=== PATIENT | female | born 1990 ===

== ENCOUNTER 2020-06-12 16:19 | Outpatient (REF) | payer MEDICAID, SELFPAY | END 2020-06-12 16:20 | disposition home or self-care (01) | LOC: HO.LAB 16:19 | PROVIDERS: Visit Provider Internal Medicine | DX: Z20.828 Contact with and (suspected) exposure to other viral communicable diseases (principal) | CPT/HCPCS: 36415; C9803; U0003 ==

== ENCOUNTER 2020-11-14 20:08 | Emergency (ER) | payer MEDICAID, SELFPAY ==
--- NOTE | 2020-11-14 20:33 | PC.NURSE ---
CALLED FOR TRIAGE NO RESPONSE
== END 2020-11-14 20:40 | disposition left against medical advice (07) ==
PROVIDERS: Emergency Provider Emergency Medicine
DX: M79.603 Pain in arm, unspecified (principal); R20.0 Anesthesia of skin

== ENCOUNTER 2020-11-19 00:07 | Emergency (ER) | payer MEDICAID, SELFPAY ==
--- NOTE | ~2020-11-19 | XR_ITS ---
EXAMINATION: XR WRIST HAND, LEFT CLINICAL INFORMATION: Hand wrist pain COMPARISON: None TECHNIQUE: 4 views of the left hand/wrist. FINDINGS: Osseous alignment throughout the wrist and hand is anatomic. No acute fracture is seen. There is mild chronic appearing deformity at the base of the second distal phalanx. No significant focal soft tissue abnormality identified. XR/XR hand wrist LT IMPRESSION: No acute findings identified.
[2020-11-19 01:51] VITALS: BP 118/85; PULSE 83; RESP 18; TEMP 36.1; BMI 34.9
--- NOTE | 2020-11-19 02:29 | ED.EXTPRO ---
HPI - Extremity Problem General Chief complaint: Extremity Injury, Upper Stated complaint: Wrist pain Time Seen by Provider: 11/19/20 02:29 History of Present Illness HPI Narrative: 30-year-old female presents today with her pain to the left wrist. She has a history of repetitive use of the wrist. She works as a cashier and waiter/waitress. No fever no chills. No trauma. Patient from home. Pain is worse at the thumb side. Patient denies any pain to the index long and ring finger. No numbness there. No nausea no vomiting no systemic complaints. No chest pain or shortness of breath. Patient from home. No pain at the elbow full range of motion per patient. Patient attempted Motrin as the pain is been ongoing for 3 weeks. Related Data Previous Rx's Medication Instructions Recorded ibuprofen 400 mg PO Q6H PRN #20 tab 11/19/20 Allergies Allergy/AdvReac Type Severity Reaction Status Date / Time No Known Allergies Allergy Unverified 02/24/20 19:36 [No Known Allergies*] Review of Systems Review of Systems: Constitutional: No Weight loss, No Fever, No Chills, No Night Sweats, No Fatigue, No Malaise ENT/Mouth: No Hearing loss, No Ear Pain, No Nasal Congestion, No Sinus Pain, No Hoarseness, No sore throat, No Rhinorrhea, No Swallowing Difficulty Eyes: No Eye Pain, No Swelling, No Redness, No Foreign Body, No Discharge, No Vision Changes Cardiovascular: No Chest Pain, No SOB, No Dyspnea on Exertion, No Orthopnea, No Edema, No Palpitations Respiratory: No Cough, No Sputum, No Wheezing, No Smoke Exposure, No Dyspnea Gastrointestinal: No Nausea, No Vomiting, No Diarrhea, No Constipation, No abdominal Pain, No Hematochezia, No Melena Genitourinary: no irregular bleeding, No Dysuria, No Urinary Frequency, No Hematuria, No Urinary Incontinence, No Urgency, No Flank Pain, No Urinary Flow Changes, No Hesitancy Musculoskeletal: Positive pain to the left wrist Skin: No Skin Lesions, No rash Neuro: No Weakness, No Numbness, No Paresthesias, No Loss of Consciousness, No Dizziness, No Headache Psych: No Anxiety/Panic, No Depression, No SI/HI/AH/VH, No Social Issues, Heme/Lymph: No Bruising, No Bleeding,No Lymphadenopathy Endocrine: No Polyuria, No Polydipsia, No Temperature Intolerance [facility] Past Medical History Attestation statement: The following information was validated with the patient. Social History Social History Advance Directives: No Advance Directives Information Provided: No Patient : No Physical Exam Vital Signs: Vital Signs: Last Vital Signs Temp 97.0 F 11/19/20 01:51 Pulse 83 11/19/20 01:51 Resp 18 11/19/20 01:51 BP 118/85 11/19/20 01:51 Body Mass Index 34.9 Appearance: Alert. Oriented X3. No acute distress. Eyes: Pupils equal, round and reactive to light. ENT: Pharynx normal. Neck: Normal inspection. Neck supple. No lymph nodes noted. No crepitus CVS: Normal heart rate and rhythm. Pulses normal. Normal S1 and S2 Respiratory: No respiratory distress. Breath sounds normal. No Wheezing. No rales Abdomen: Soft and nontender. No rigidity. No distention. good BS x4 Skin: Skin warm and dry. Normal skin color. Normal skin turgor. Extremities: No lower extremity edema. Neurovascular intact to all extremities. No Lacerations. No Rash Positive pain to the left wrist. There is no anatomical snuffbox tenderness. Sensation over the radial, median, ulnar nerve intact. There is no numbness or tingling in the index, long, ring finger. Capillary refills less than 2 seconds. Skin was intact. Pulses 2+ at radial. MDM - Extremity (Nontraumatic) MDM Narrative Medical decision making narrative: X-ray showed no acute fractures. Patient had no trauma. Has no anatomical snuffbox tenderness. Unlikely to have a fracture there. Will discharge patient home will have patient follow-up with orthopedics on an outpatient basis as patient have extreme pain. In stable condition. Discharge Plan Discharge Clinical Impression: Sprain and strain of wrist Patient Disposition: Home, Self-Care Instructions: Wrist Sprain (ED) Prescriptions: New ibuprofen 400 mg tablet 400 mg PO Q6H PRN (Reason: pain) Qty: 20 RF: 0 Referrals: [facility] [Primary Care Provider] - 2 days Wilber Candelario MD [Physician] - 2 days
== END 2020-11-19 03:27 | disposition home or self-care (01) ==
PROVIDERS: Emergency Provider Emergency Medicine Emergency Medical Services
DX: S63.502A Unspecified sprain of left wrist, initial encounter (principal); S66.912A Strain of unspecified muscle, fascia and tendon at wrist and hand level, left hand, initial encounter; X50.1XXA Overexertion from prolonged static or awkward postures, initial encounter; Y93.89 Activity, other specified; Y92.511 Restaurant or cafe as the place of occurrence of the external cause; Y99.0 Civilian activity done for income or pay
CPT/HCPCS: 73110; 73130; 99283

== ENCOUNTER 2021-10-13 18:56 | Emergency (ER) | payer MEDICAID, SELFPAY ==
--- NOTE | ~2021-10-13 | XR_ITS ---
EXAMINATION: XR ANKLE, LEFT CLINICAL INFORMATION: Injury COMPARISON: None TECHNIQUE: AP, lateral, and mortise views of the left ankle. FINDINGS: There is soft tissue swelling around lateral malleolus. The bones and soft tissues are otherwise normal. No fracture. Alignment is anatomic. Joint spaces are maintained. No joint effusion. XR/XR ankle LT min 3V IMPRESSION: Soft tissue swelling around lateral malleolus. No fracture.
[2021-10-13 19:33] VITALS: BP 114/74; PULSE 81; RESP 18; TEMP 36.6; O2SAT 99; BMI 35.6
--- NOTE | 2021-10-13 20:37 | ED_ITS ---
HPI - Extremity Injury (Lower) General Chief Complaint: Extremity Injury, Lower Stated Complaint: twisted ankle Source: patient Mode of arrival: ambulatory Limitations: no limitations History of Present Illness HPI Narrative: 31-year-old female presents with left ankle pain after twisting it while she slipped down 3 stairs earlier today. Does not report any other injuries. Has pain, bruising and swelling to the ankle. MD complaint: ankle injury Onset (ago): hour(s) (Within the hour of arrival) Type of Injury: inversion Place: home Severity: moderate Severity scale (1-10): 10 Relieving factors: nothing Exacerbating factors: weight bearing, movement and palpation Context: fall Associated symptoms: swelling and able to partially bear weight Other symptoms: none Treatments prior to arrival: cold therapy Related Data Previous Rx's Medication Instructions Recorded ibuprofen 400 mg tablet 400 mg PO Q6H PRN #20 tab 11/19/20 ibuprofen 600 mg tablet 600 mg PO Q6H PRN #30 tab 10/13/21 Allergies Allergy/AdvReac Type Severity Reaction Status Date / Time No Known Allergies Allergy Verified 10/13/21 19:33 [No Known Allergies*] Review of Systems Review of Systems: Constitutional: No Fever, No Chills ENT/Mouth: No Ear Pain, No Hoarseness, No sore throat Eyes: No Eye Pain, No Swelling, No Redness, No Foreign Body Cardiovascular: No Chest Pain, No SOB Respiratory: No Cough, No Dyspnea Gastrointestinal: No Nausea, No Vomiting, No Diarrhea, No abdominal Pain Genitourinary: No Dysuria, No Hematuria Musculoskeletal: positive left ankle swelling and pain, No Myalgias, No Joint Swelling Skin: No Skin lacerations, No rash Neuro: No Weakness, No Numbness, No Paresthesias, No Loss of Consciousness, No Dizziness, No Headache Psych: No Anxiety/Panic, No Depression Heme/Lymph: no easy bruising, no Lymphadenopathy Endocrine: No Polyuria, No Polydipsia Yes all other systems are reviewed and are negative [facility] Past Medical History Attestation statement: The following information was validated with the patient. Source: old records reviewed Social History Social History Advance Directives: No Advance Directives Information Provided: No Patient : No Physical Exam Vital Signs: Vital Signs: Last Vital Signs Temp 97.8 F 10/13/21 19:33 Pulse 81 10/13/21 19:33 Resp 18 10/13/21 19:33 BP 114/74 10/13/21 19:33 Pulse Ox 99 10/13/21 19:33 BMI result Body Mass Index 35.6 Appearance: Alert. Oriented X3. No acute distress. Eyes: Pupils equal, round and reactive to light. ENT: Pharynx normal. Neck: Normal inspection. Neck supple. CVS: Normal heart rate and rhythm. Pulses normal. Respiratory: No respiratory distress. Breath sounds normal. Abdomen: Soft and nontender. Skin: Skin warm and dry. Normal skin color. Normal skin turgor. Extremities: Left lateral malleolar swelling, bruising and tenderness to palpation. Decreased range of motion with flexion extension internal and external rotation. Brisk capillary refill in equal pulses. Neuro: No motor deficit. No sensory deficit. Cranial nerves 2-12 intact. Course Course Course Narrative: 31-year-old female presents with visibly swollen, bruised, left ankle. Has decreased range of motion with flexion extension internal and external rotation. X-rays are negative for acute findings requiring emergent intervention. Patient's presentation and physical exam consistent with grade [address] patient in Aircast, give crutches, and supportive measures. Patient does understand that she must follow-up with primary care physician and orthopedics if pain persists greater than 2 weeks. Patient verbalized understanding of and agrees to plan of care to discharge home. Verbalized understanding of signs and symptoms indicating need for emergent intervention MDM - Extremity Injury (Lower) Differential Diagnosis Differential diagnosis: Likely ankle sprain and strain and ankle fracture Medical Records Attestation: I reviewed the patient's medical records. Imaging Data Ankle x-ray: Attestation: I personally reviewed and interpreted this imaging study as follows: Radiologist's impression: EXAMINATION: XR ANKLE, LEFT CLINICAL INFORMATION: Injury? COMPARISON: None? TECHNIQUE: AP, lateral, and mortise views of the left ankle. FINDINGS: There is soft tissue swelling around lateral malleolus. The bones and soft tissues are otherwise normal. No fracture. Alignment is anatomic. Joint spaces are maintained. No joint effusion.? XR/XR ankle LT min 3V IMPRESSION: Soft tissue swelling around lateral malleolus. No fracture. Discharge Plan Discharge Clinical Impression: Ankle sprain and strain Patient Disposition: Home, Self-Care Instructions: Ankle Sprain (ED), Crutch Instructions (ED), Ankle Stirrup Splint (ED), R.I.C.E. Treatment (ED) Additional Instructions: You were evaluated for left ankle injury. X-rays are negative for acute findings. Physical exam is consistent with grade 2 ankle sprain. Please use Aircast as needed. Rest, ice and elevate to help reduce pain and swelling. Use crutches as needed for comfort. Follow-up with primary care physician. Take Motrin 600 mg every 6 hours as needed for pain management. Thank you for choosing this emergency department for evaluation. Please follow-up with primary care physician as needed. Return to the emergency department for any new, concerning, or worsening symptoms. Prescriptions: New ibuprofen 600 mg tablet 600 mg PO Q6H PRN (Reason: pain) Qty: 30 0RF No Action ibuprofen 400 mg tablet 400 mg PO Q6H PRN (Reason: pain) Qty: 20 0RF Interventions: ED Discharge Assessment Last Done: 10/13/21 21:40 Discharge Date/Time: 10/13/21 21:43
[2021-10-13] MEDS: Ibuprofen 600 MG TABLET PO (21:26)
== END 2021-10-13 21:43 | disposition home or self-care (01) ==
PROVIDERS: Emergency Provider Internal Medicine
DX: S93.402A Sprain of unspecified ligament of left ankle, initial encounter (principal); S96.912A Strain of unspecified muscle and tendon at ankle and foot level, left foot, initial encounter; W10.9XXA Fall (on) (from) unspecified stairs and steps, initial encounter; Y93.9 Activity, unspecified; Y92.009 Unspecified place in unspecified non-institutional (private) residence as the place of occurrence of the external cause; Y99.9 Unspecified external cause status
CPT/HCPCS: 73610; 99283; 99284

== ENCOUNTER 2022-06-09 02:36 | Emergency (ER) | payer MEDICAID, SELFPAY ==
[2022-06-09 02:46] VITALS: BP 123/67; PULSE 106; RESP 18; TEMP 36.8; O2SAT 98; BMI 38.2
[2022-06-09 05:13] VITALS: BP 120/70; PULSE 80; RESP 16; TEMP 36.9; O2SAT 100
--- NOTE | 2022-06-09 05:33 | ED.SKABFB ---
HPI - Skin/Abscess/Foreign Bdy General Chief complaint: Skin/Abscess/Foreign Body Stated complaint: Abscess Behind R Ear Rash Time Seen by Provider: 06/09/22 05:02 Source: patient Mode of arrival: ambulatory Limitations: no limitations History of Present Illness HPI narrative: 32-year-old female who presents emergency department for evaluation of skin infection/abscess behind her right ear x6 days. She states that initially she noted a red pimple behind her ear which she popped. States that the pimple got larger , red and painful . She states that the center pimple then drained liquidy material. She states that since the drainage of this liquidy material the redness has spread and the area of redness has become painful. She states that the pain is a constant, throbbing pain which is moderate intensity. She has had subjective fever with no chills. She denied weakness, fatigue, nausea, vomiting or diarrhea. The patient did not take any medications for the pain. She has not been on antibiotics recently. She does not have a history of MRSA infections or frequent formation of skin abscesses. Related Data Previous Rx's Medication Instructions Recorded ibuprofen 400 mg tablet 400 mg PO Q6H PRN pain #20 tabs 11/19/20 ibuprofen 600 mg tablet 600 mg PO Q6H PRN pain #30 tabs 10/13/21 cephalexin 500 mg capsule 500 mg PO TID 7 days #21 caps 06/09/22 doxycycline hyclate 100 mg tablet 100 mg PO Q12H 7 days #14 tabs 06/09/22 ibuprofen 600 mg tablet 600 mg PO Q6H PRN pain #30 tabs 06/09/22 Allergies Allergy/AdvReac Type Severity Reaction Status Date / Time No Known Allergies Allergy Verified 06/09/22 02:50 [No Known Allergies*] Review of Systems Review of Systems: Yes all other systems are reviewed and are negative [facility] Past Medical History [facility] Narrative: Past medical history: None. Past surgical history: None. Social history: She denies tobacco use. She occasionally drinks alcohol. She states that she does not use drugs. Social History Social History Advance Directives: No Advance Directives Information Provided: No Physical Exam Vital Signs: Vital Signs: Last Vital Signs Temp 98.4 F 06/09/22 05:13 Pulse 80 06/09/22 05:13 Resp 16 06/09/22 05:13 BP 120/70 06/09/22 05:13 Pulse Ox 100 06/09/22 05:13 O2 Del Method 06/09/22 05:13 BMI result Body Mass Index 38.2 Const: Other: Well-appearing female patient, very pleasant and cooperative, answers all questions appropriately, does not appear to be in distress HEENT: Other: The patient has an area of circular erythema behind her right area measuring approximately 8 x 5 cm, there is a central area which is consistent with a draining abscess, there is no flocculence, the erythematous area is indurated, there is an area of erythema superior to the described region and this erythema is spreading to ear. The erythema is warm to the touch and is tender to palpation.. Neck: Other: Neck is supple, there is no adenopathy Medications Administered Discontinued Medications Generic Name Dose Route Start Last Admin Trade Name Freq PRN Reason Stop Dose Admin Cephalexin HCl 500 mg 06/09/22 05:34 06/09/22 05:49 Cephalexin 500 Mg Capsule PO 06/09/22 05:35 500 mg ONCE ONE Administration Doxycycline Monohydrate 100 mg 06/09/22 05:34 06/09/22 05:49 Doxycycline Monohydrate 100 Mg Capsule PO 06/09/22 05:35 100 mg ONCE ONE Administration Ibuprofen 600 mg 06/09/22 05:34 06/09/22 05:49 Ibuprofen 600 Mg Tablet PO 06/09/22 05:35 600 mg ONCE STA Administration Medical Decision Making Medical Decision Making [facility] Narrative: 32-year-old female who presents emergency depart evaluation of 6 days of erythema increased warmth and pain behind her right ear which has drained purulent material and the erythema has spread to involve her ear as well. She had subjective fever but no chills, she had no fatigue or weakness. The patient's examination is consistent with a draining abscess with significant erythema. The the patient has not been on antibiotics and does not have a history of MRSA however I do 1 a cover her broadly for possible MRSA and non MRSA infections. She was prescribed doxycycline 100 mg every 12 hours for 7 days and Keflex 500 mg 3 times a day for 7 days. She was given her 1st dose of these medications here in the emergency department. She was also given ibuprofen 600 mg orally for her pain. She was given printed and verbal instructions on how to manage cellulitis, she was advised to apply heat to the area for 15 minutes 4 to 6 times a day. She was also given a work note for 3 days so that she can stay home and take care of the cellulitis. Differential Diagnosis Differential includes was not limited to abscess, MRSA cellulitis, non MSSA cellulitis, herpes zoster Tests considered The following testing was considered but not selected: I considered getting a CBC, CMP, ESR, CRP and blood cultures x2 however the patient has not been on antibiotics and I do not think that these tests are needed unless she fails outpatient treatment Prescription Management Patient was prescribe doxycycline, Keflex and ibuprofen Discharge Plan Discharge Clinical Impression: Cellulitis of postauricular region Patient Disposition: Home, Self-Care Instructions: Cellulitis (ED) Additional Instructions: You have an infection of your skin behind your ear pain. This most likely started as an infected pimple and then grew into an abscess which has drained. I want you to apply heat for 15 minutes 4 to 6 times a day for the next 2-3 days. Either use an electric heating pad on low or a warm washcloth. Take Keflex (cephalexin) 500 mg pills, 1 pill 3 times a day for 7 days. Take doxycycline 100 mg, 1 pill every 12 hours for 7 days Take ibuprofen 600 mg pills, 1 pills every 6 hours as needed for pain or fever. Take Tylenol (acetaminophen) 500 mg pills, 2 pills every 4 to 6 hours as needed for pain or fever. Follow-up with your doctor in 2 days. Please return to the emergency department if your symptoms get worse or if you develop any symptoms that are concerning to you. Please see work note Prescriptions: New cephalexin 500 mg capsule 500 mg PO TID 7 Days Qty: 21 0RF ibuprofen 600 mg tablet 600 mg PO Q6H PRN (Reason: pain) Qty: 30 0RF doxycycline hyclate 100 mg tablet 100 mg PO Q12H 7 Days Qty: 14 0RF No Action ibuprofen 400 mg tablet 400 mg PO Q6H PRN (Reason: pain) Qty: 20 0RF ibuprofen 600 mg tablet 600 mg PO Q6H PRN (Reason: pain) Qty: 30 0RF Stand Alone Forms: Work/School Release Interventions: ED Discharge Assessment Last Done: 06/09/22 05:50 Discharge Date/Time: 06/09/22 05:51
[2022-06-09] MEDS: Doxycycline Monohydrate 100 MG CAPSULE PO (05:49)
[2022-06-09] MEDS: cephALEXin 500 MG CAPSULE PO (05:49)
[2022-06-09] MEDS: Ibuprofen 600 MG TABLET PO (05:49)
== END 2022-06-09 05:51 | disposition home or self-care (01) ==
PROVIDERS: Emergency Provider Emergency Medicine Emergency Medical Services; PCP Internal Medicine
DX: H60.01 Abscess of right external ear (principal); Z79.899 Other long term (current) drug therapy
CPT/HCPCS: 99284

== ENCOUNTER 2022-09-05 00:58 | Emergency (ER) | payer MEDICAID, SELFPAY ==
[2022-09-05 01:01] VITALS: BP 118/75; PULSE 104; RESP 18; TEMP 36.9; O2SAT 97; BMI 39.4
[2022-09-05 01:27] LABS: Basophils Percent Auto 0.3 % (0-2); Eosinophils Absolute Auto 0.1 X10*3/uL (0.0-0.4); Eosinophils Percent Auto 0.9 % (0-4); Hematocrit 36.5 % (37.0-47.0); Hemoglobin 11.9 g/dl (12.0-16.0); Imm Gran Abs Auto 0.02 X10*3/uL (0.00-0.03); Imm Gran Pct Auto 0.2 % (0.0-0.4); Lymphocytes Percent Auto 32.8 % (20-40); MANUAL DIFF FLAG NO; Mean Corpuscular HGB Conc 32.6 g/dl (31.0-35.0); Mean Corpuscular Hemoglobin 27.9 pg (27.0-33.0); Mean Corpuscular Volume 85.5 fL (80.0-98.0); Mean Platelet Volume 9.9 fL (9.4-12.3); Monocytes Absolute Auto 0.5 X10*3/uL (0.1-1.2); Monocytes Percent Auto 5.6 % (2-11); Neutrophils Absolute Auto 5.5 x10*3/uL (2.0-8.3); Neutrophils Percent Auto 60.2 % (45-73); Platelet Count 275 X10*3/uL (160-400); Red Blood Count 4.27 X10*6/uL (4.20-5.50); Red Cell Distribution Width 12.9 % (11.0-16.0); White Blood Count 9.1 X10*3/uL (4.8-10.8)
[2022-09-05 01:37] VITALS: BP 105/61; PULSE 93; RESP 18; O2SAT 100
[2022-09-05] MEDS: dexAMETHasone 2 MG TABLET 10 MG PO (01:44)
[2022-09-05] MEDS: diphenhydrAMINE HCL 50 MG/ML VIAL IM (01:44)
[2022-09-05 01:45] LABS: Alanine Aminotransferase 18 U/L (0-31); Alkaline Phosphatase 77 U/L (39-117); Anion Gap 13 (12-20); Aspartate Amino Transferase 18 U/L (5-31); Blood Urea Nitrogen 15 mg/dL (9-16); Calcium 9.3 mg/dL (8.4-10.2); Carbon Dioxide 24 mmol/L (22-29); Chloride 109 mmol/L (96-108); Creatinine Clr Calc Pharmacy 112.6; Estimated Glomerular Filt Rate > 60; Glucose Random 96 mg/dL (60-115); Sodium 142 mmol/L (135-145)
[2022-09-05 01:55] LABS: Bilirubin Total 0.5 mg/dL (0.0-1.0)
--- NOTE | 2022-09-05 02:00 | ED.ALLEREA ---
HPI - Allergic Reaction General Chief complaint: Allergic Reaction Stated complaint: rash? possible allergic reaction Time Seen by Provider: 09/05/22 01:38 Source: patient Mode of arrival: ambulatory History of Present Illness HPI narrative: Patient with no significant past allergic reaction was at her mother's house sudden noticed a rash on her face with itching and hives on the extremities no shortness of breath no throat pain Related Data Previous Rx's Medication Instructions Recorded ibuprofen 400 mg tablet 400 mg PO Q6H PRN pain #20 tabs 11/19/20 ibuprofen 600 mg tablet 600 mg PO Q6H PRN pain #30 tabs 10/13/21 cephalexin 500 mg capsule 500 mg PO TID 7 days #21 caps 06/09/22 doxycycline hyclate 100 mg tablet 100 mg PO Q12H 7 days #14 tabs 06/09/22 ibuprofen 600 mg tablet 600 mg PO Q6H PRN pain #30 tabs 06/09/22 diphenhydramine HCl 25 mg capsule 50 mg PO TID PRN allergic reaction 09/05/22 (Benadryl) #30 caps Allergies Allergy/AdvReac Type Severity Reaction Status Date / Time No Known Allergies Allergy Verified 09/05/22 01:04 [No Known Allergies*] Review of Systems Review of Systems: Yes all other systems are reviewed and are negative PMFSH Social History Social History Advance Directives: No Advance Directives Information Provided: Yes Physical Exam ED Vital Signs: Vital Signs - 24 hr 09/05/22 01:01 09/05/22 01:37 09/05/22 02:51 Temperature 98.5 F 98.0 F Pulse Rate 104 H 93 80 Respiratory Rate 18 18 20 Blood Pressure 118/75 105/61 115/61 Pulse Oximetry 97 100 100 Oxygen Delivery Method Room Air Room Air Room Air BMI result Body Mass Index 39.4 Appearance: Alert. Oriented X3. No acute distress. Eyes: Swollen eyelids and face with hives ENT: Pharynx normal. Oral Mucosa moist, tongue and lips normal Neck: Normal inspection. Neck supple. No stridor CVS: Normal heart rate and rhythm. Pulses normal. Respiratory: No respiratory distress. Equal air entry bilateral, no wheezing/rales/rhonchi Abdomen: Soft and nontender. Skin: Skin warm and dry. Few hives on upper extremity Normal skin turgor. Neuro: Oriented X 3. Medications Administered Discontinued Medications Generic Name Dose Route Start Last Admin Trade Name Bj PRN Reason Stop Dose Admin Dexamethasone 10 mg 09/05/22 01:38 09/05/22 01:44 Dexamethasone 2 Mg Tablet PO 09/05/22 01:39 10 mg ONCE ONE Administration Diphenhydramine HCl 50 mg 09/05/22 01:38 09/05/22 01:44 Diphenhydramine Hcl 50 Mg/Ml Vial IM 09/05/22 01:39 50 mg ONCE ONE Administration Medical Decision Making Medical Decision Making MDM Narrative: Patient's rash improved after p.o. Decadron and IM Benadryl feeling much better advised to continue Benadryl follow up with PCP for further management Lab Data 09/05/22 01:21 09/05/22 01:21 Labs: Lab Results 09/05/22 09/05/22 Range/Units 01:21 01:21 WBC 9.1 (4.8-10.8) X10*3/uL RBC 4.27 (4.20-5.50) X10*6/uL Hgb 11.9 L (12.0-16.0) g/dl Hct 36.5 L (37.0-47.0) % MCV 85.5 (80.0-98.0) fL MCH 27.9 (27.0-33.0) pg MCHC 32.6 (31.0-35.0) g/dl RDW 12.9 (11.0-16.0) % Plt Count 275 (160-400) X10*3/uL MPV 9.9 (9.4-12.3) fL Immature Gran % (Auto) 0.2 (0.0-0.4) % Neut % (Auto) 60.2 (45-73) % Lymph % (Auto) 32.8 (20-40) % Latimer % (Auto) 5.6 (2-11) % Eos % (Auto) 0.9 (0-4) % Baso % (Auto) 0.3 (0-2) % Lymph # (Auto) 3.0 (1.2-4.9) X10*3/uL Latimer # (Auto) 0.5 (0.1-1.2) X10*3/uL Eos # (Auto) 0.1 (0.0-0.4) X10*3/uL Baso # (Auto) 0.0 (0.0-0.2) X10*3/uL Abs Immat Gran (auto) 0.02 (0.00-0.03) X10*3/uL Absolute Neuts (auto) 5.5 (2.0-8.3) x10*3/uL Absolute Nucleated RBC 0.000 (0.0-0.012) X10*3/uL Nucleated RBC % (auto) 0.0 (0.0-0.2) /100WBC Sodium 142 (135-145) mmol/L Potassium 4.0 (3.3-5.1) mmol/L Chloride 109 H (96-108) mmol/L Carbon Dioxide 24 (22-29) mmol/L Anion Gap 13 (12-20) BUN 15 (9-16) mg/dL Creatinine 0.89 (0.5-1.4) mg/dL Estim Creat Clear Calc 112.6 Estimated GFR > 60 Random Glucose 96 (60-115) mg/dL Calcium 9.3 (8.4-10.2) mg/dL Total Bilirubin 0.5 (0.0-1.0) mg/dL AST 18 (5-31) U/L ALT 18 (0-31) U/L Alkaline Phosphatase 77 (39-117) U/L Total Protein 7.0 (6.5-8.0) g/dL Albumin 4.0 (3.5-5.0) g/dL Discharge Plan Discharge Clinical Impression: Allergic reaction Patient Disposition: Home, Self-Care Instructions: General Allergic Reaction (ED) Additional Instructions: Cause of allergic reaction is not very clear take Benadryl 2 tablets every 6 hours as needed Follow with PCP for further allergy testing Prescriptions: New diphenhydramine HCl [Benadryl] 25 mg capsule 50 mg PO TID PRN (Reason: allergic reaction) Qty: 30 0RF No Action ibuprofen 400 mg tablet 400 mg PO Q6H PRN (Reason: pain) Qty: 20 0RF ibuprofen 600 mg tablet 600 mg PO Q6H PRN (Reason: pain) Qty: 30 0RF cephalexin 500 mg capsule 500 mg PO TID 7 Days Qty: 21 0RF ibuprofen 600 mg tablet 600 mg PO Q6H PRN (Reason: pain) Qty: 30 0RF doxycycline hyclate 100 mg tablet 100 mg PO Q12H 7 Days Qty: 14 0RF Interventions: ED Discharge Assessment Last Done: 09/05/22 03:07 Discharge Date/Time: 09/05/22 03:09
[2022-09-05 02:51] VITALS: BP 115/61; PULSE 80; RESP 20; TEMP 36.7; O2SAT 100
== END 2022-09-05 03:09 | disposition home or self-care (01) ==
PROVIDERS: Emergency Provider Internal Medicine
DX: L50.0 Allergic urticaria (principal); Z79.899 Other long term (current) drug therapy
CPT/HCPCS: 36415; 80053; 85025; 96372; 99284; J1200; J8540

== ENCOUNTER → 2022-09-30 13:22 | Outpatient (BNVA) | payer MEDICAID, SELFPAY | PROVIDERS: Visit Provider Physician Assistant ==

== ENCOUNTER 2022-10-15 12:46 | Outpatient (REF) | payer MEDICAID, SELFPAY ==
[2022-10-19 14:11] LABS: H Pylori Breath Test Negative (Negative)
== END 2022-10-15 12:47 | disposition home or self-care (01) ==
LOC: HO.LNP 12:46
PROVIDERS: PCP Internal Medicine; Visit Provider Physician Assistant Surgical
DX: E66.01 Morbid (severe) obesity due to excess calories (principal); Z71.3 Dietary counseling and surveillance; Z68.38 Body mass index [BMI] 38.0-38.9, adult
CPT/HCPCS: 83013; 99202; 99211

== ENCOUNTER 2022-10-21 03:06 | Emergency (ER) | payer MEDICAID, SELFPAY ==
--- NOTE | ~2022-10-21 | XR_ITS ---
EXAMINATION: XR KNEE, RIGHT CLINICAL INFORMATION: Pain COMPARISON: None available. TECHNIQUE: Four views of the right knee. FINDINGS: Osseous alignment is anatomic. Joint spaces appear maintained. No acute fracture is seen. No significant effusion. XR/XR knee RT 4V IMPRESSION: No acute findings identified.
[2022-10-21 03:13] VITALS: BP 123/67; PULSE 96; RESP 18; TEMP 37; O2SAT 96; BMI 41.4
--- NOTE | 2022-10-21 04:46 | ED_ITS ---
HPI - Extremity Injury (Lower) General Chief Complaint: Extremity Injury, Lower Stated Complaint: Rt Knee Pain Time Seen by Provider: 10/21/22 04:09 History of Present Illness HPI Narrative: Patient is 32 years old presents today with having pain to the right knee. Patient was playing with her daughter this evening after she twisted her knee. Try to take Motrin at 21:00 applied ice to no relief. Called EMS to bring her in. Patient is larger in size. She has pain on Lexi bearing. She had previous knee surgery back in 2013. There is no head injury. Patient not on blood thinners. No bowel urinary incontinence. Patient is from home. Related Data Previous Rx's Medication Instructions Recorded diphenhydramine HCl 25 mg capsule 50 mg PO TID PRN allergic reaction 09/05/22 (Benadryl) #30 caps Allergies Allergy/AdvReac Type Severity Reaction Status Date / Time No Known Allergies Allergy Verified 10/21/22 03:17 [No Known Allergies*] Review of Systems Review of Systems: No fever no chills no chest pain or shortness breath no nausea no vomiting no systemic complaints Yes all other systems are reviewed and are negative [facility] Past Medical History Attestation statement: The following information was validated with the patient. Surgical History No history of previous surgery Family History Family History Mother No problems noted. Father No problems noted. Maternal Grandmother Diabetes Social History Social History Alcohol intake: current Alcohol intake frequency: holidays/special occasions only Patient Tobacco Use Status: Never used Tobacco Advance Directives: No Advance Directives Information Provided: Yes Physical Exam Vital Signs: Vital Signs: Last Vital Signs Temp 98.6 F 10/21/22 03:13 Pulse 96 10/21/22 03:13 Resp 18 10/21/22 03:13 BP 123/67 10/21/22 03:13 Pulse Ox 96 10/21/22 03:13 O2 Del Method Room Air 10/21/22 03:13 BMI result Body Mass Index 41.4 Appearance: Alert. Oriented X3. No acute distress. Eyes: Pupils equal, round and reactive to light. ENT: Pharynx normal. Neck: Normal inspection. Neck supple. No lymph nodes noted. No crepitus CVS: Normal heart rate and rhythm. Pulses normal. Normal S1 and S2 Respiratory: No respiratory distress. Breath sounds normal. No Wheezing. No rales Abdomen: Soft and nontender. No rigidity. No distention. good BS x4 Skin: Skin warm and dry. Normal skin color. Normal skin turgor. Extremities: Examination of the right knee showed the kneecap grossly in place. There is pain on movement of the knee. There is no pain on palpation of the medial or lateral collateral ligament. Distal pulses intact sensation intact moving her toes well, moving the ankle well. No problems Hopper and plantar flex the foot. Skin intact in the entire lower extremity. Neuro: Oriented X 3. No motor deficit. No sensory deficit. Moving all extermities. No slurred speech Medical Decision Making Medical Decision Making [facility] Narrative: Question fracture versus internal derangement of the knee including meniscal tear versus ACL tear. No gross evidence of patellar dislocation. Given pain medication. Will place patient on knee immobilizer. Will discharge patient home. Follow up Orthopedics. Differential Diagnosis Differential Diagnoses: The differential diagnosis associated with the presentation includes Fractured knee, meniscal injury, ligamentous injury Lab Data [facility] Lab Attestation statement: I reviewed the patient's lab results. Independent Interpretation I performed an independent interpretation of an: Plain X-Ray Interpretation: X-ray showed no acute fracture Radiology Impression Discussion of test interpretation with radiology: I have reviewed the radiologist's reading. Radiologist Impression: Negative x-ray Independent Historian Clinical information obtained from an independent historian. History obtained from or confirmed by: Spouse Prescription Management I considered prescription management with: Pain Medication Discharge Plan Discharge Clinical Impression: Acute internal derangement of knee Patient Disposition: Home, Self-Care Instructions: ACL Injury (ED) Additional Instructions: Ice, elevate, Motrin for regular pain. Percocet for extreme pain. Prescriptions: No Action diphenhydramine HCl [Benadryl] 25 mg capsule 50 mg PO TID PRN (Reason: allergic reaction) Qty: 30 0RF Referrals: Wilber Candelario MD [Physician] - 10/23/22 Print Language: Portuguese
[2022-10-21] MEDS: HYDROcodone Bit/Acetam 5/325 TABLET 1 TAB PO (04:57)
== END 2022-10-21 05:02 | disposition home or self-care (01) ==
PROVIDERS: Emergency Provider Emergency Medicine Emergency Medical Services; PCP Internal Medicine
DX: M23.91 Unspecified internal derangement of right knee (principal)
CPT/HCPCS: 73564; 99283

== ENCOUNTER → 2022-11-08 11:25 | Outpatient (BNVA) | payer MEDICAID, SELFPAY | PROVIDERS: PCP Internal Medicine; Visit Provider Physician Assistant Surgical | DX: E66.9 Obesity, unspecified (principal); Z68.37 Body mass index [BMI] 37.0-37.9, adult | CPT/HCPCS: 99212 ==

== ENCOUNTER 2022-11-14 09:49 | Outpatient (REF) | payer MEDICAID, SELFPAY ==
--- NOTE | ~2022-11-14 | XR_ITS ---
EXAMINATION: XR CHEST 2 VIEWS CLINICAL INFORMATION: Morbid obesity. COMPARISON: None. TECHNIQUE: Frontal and lateral views of the chest were obtained. FINDINGS: The heart, great vessels, pulmonary vasculature and mediastinum are normal. The lungs show no focal infiltrate, effusion or pneumothorax. There is no acute osseous abnormality. XR/XR chest 2V IMPRESSION: No active cardiopulmonary disease.
[2022-11-14 10:23] LABS: MANUAL DIFF FLAG NO
[2022-11-14 10:42] LABS: Basophils Percent Auto 0.6 % (0-2); Eosinophils Absolute Auto 0.2 X10*3/uL (0.0-0.4); Eosinophils Percent Auto 2.3 % (0-4); Hematocrit 37.1 % (37.0-47.0); Imm Gran Abs Auto 0.02 X10*3/uL (0.00-0.03); Imm Gran Pct Auto 0.3 % (0.0-0.4); Lymphocytes Absolute Auto 2.6 X10*3/uL (1.2-4.9); Mean Corpuscular HGB Conc 32.3 g/dl (31.0-35.0); Mean Corpuscular Hemoglobin 27.8 pg (27.0-33.0); Mean Corpuscular Volume 85.9 fL (80.0-98.0); Mean Platelet Volume 10.3 fL (9.4-12.3); Monocytes Absolute Auto 0.5 X10*3/uL (0.1-1.2); Monocytes Percent Auto 7.1 % (2-11); Neutrophils Absolute Auto 3.5 x10*3/uL (2.0-8.3); Neutrophils Percent Auto 51.7 % (45-73); Platelet Count 264 X10*3/uL (160-400); Red Blood Count 4.32 X10*6/uL (4.20-5.50); Red Cell Distribution Width 12.9 % (11.0-16.0); White Blood Count 6.9 X10*3/uL (4.8-10.8)
[2022-11-14 11:08] LABS: Alanine Aminotransferase 20 U/L (0-31); Alkaline Phosphatase 85 U/L (39-117); Anion Gap 10 (12-20); Aspartate Amino Transferase 21 U/L (5-31); Bilirubin Total 0.4 mg/dL (0.0-1.0); Blood Urea Nitrogen 12 mg/dL (9-16); C Reactive Protein 0.27 mg/dL (< or = 0.50); Calcium 9.4 mg/dL (8.4-10.2); Carbon Dioxide 26 mmol/L (22-29); Chloride 110 mmol/L (96-108); Cholesterol 142 mg/dL; Estimated Glomerular Filt Rate > 60; Glucose Random 110 mg/dL (60-115); HDL Cholesterol 33 mg/dL; Iron 84 mcg/dL (30-160); LDL Cholesterol Calculated 93 mg/dl; Percent Iron Saturation 28 % (15-50); Sodium 142 mmol/L (135-145); Total Iron Binding Capacity 301 mcg/dL (228-428); Total Protein 7.1 g/dL (6.5-8.0); Triglycerides 81 mg/dL; Unsaturated Iron Binding 217 ug/dL
[2022-11-14 11:14] LABS: Estimated Average Glucose 111 mg/dL; Hemoglobin A1c % 5.5 %
[2022-11-14 11:37] LABS: Ferritin 59 ng/mL (10-122); Folate 15.3 ng/mL (> or = 4.0); Insulin 13 uU/mL (2-29); TSH reflex Free T4 3.54 uIU/mL (0.32-4.0); Vitamin B12 373 pg/mL (200-900); Vitamin D 25-OH Total 19.8 ng/mL (>30)
[2022-11-18 14:23] LABS: Calcium (PTHI) 9.4 mg/dL (8.6-10.2); PTHI 70 pg/mL (16-77)
[2022-11-21 01:03] LABS: Vitamin A 38 mcg/dL (38-98)
[2022-11-21 15:38] LABS: Vitamin B1 11 nmol/L (8-30)
== END 2022-11-14 09:50 | disposition home or self-care (01) ==
LOC: HO.XRAY 09:49
PROVIDERS: PCP Internal Medicine; Visit Provider Physician Assistant Surgical
DX: E66.01 Morbid (severe) obesity due to excess calories (principal)
CPT/HCPCS: 36415; 71046; 80053; 80061; 82306; 82607; 82728; 82746; 83036; 83525; 83540; 83970; 84425; 84443; 84590; 85025; 86140

== ENCOUNTER → 2022-11-15 13:45 | Outpatient (BNVA) | payer OTHER, MEDICAID, SELFPAY | PROVIDERS: PCP Internal Medicine; Visit Provider Counselor Mental Health ==

== ENCOUNTER → 2022-11-25 10:56 | Outpatient (BNVA) | payer MEDICAID, SELFPAY | PROVIDERS: PCP Internal Medicine; Visit Provider Surgery | DX: E66.01 Morbid (severe) obesity due to excess calories (principal); Z68.37 Body mass index [BMI] 37.0-37.9, adult | CPT/HCPCS: 99212 ==

== ENCOUNTER 2022-12-06 09:14 | Outpatient (REF) | payer MEDICAID, SELFPAY ==
--- NOTE | 2022-12-06 09:21 | ECG_ITS ---
Test Reason : e66.01 Blood Pressure : / mmHG Vent. Rate : 081 BPM Atrial Rate : 081 BPM P-R Int : 162 ms QRS Dur : 086 ms QT Int : 368 ms P-R-T Axes : 045 000 -04 degrees QTc Int : 427 ms Normal sinus rhythm Minimal voltage criteria for LVH, may be normal variant ( R in aVL ) Abnormal ECG No previous ECGs available Referred By: Michele Garcia Electronically Signed By:Dann Jung
[2022-12-10 03:47] LABS: Zinc 75 mcg/dL (60-130)
== END 2022-12-06 09:15 | disposition home or self-care (01) ==
LOC: HO.LAB 09:14
PROVIDERS: PCP Internal Medicine; Visit Provider Physician Assistant Surgical
DX: E66.01 Morbid (severe) obesity due to excess calories (principal)
CPT/HCPCS: 36415; 84630; 93005

== ENCOUNTER 2023-03-10 13:03 | Outpatient (AMB) | payer MEDICAID, SELFPAY ==
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
[2023-03-10 13:09] VITALS: BP 116/69; PULSE 75; TEMP 36.6; O2SAT 97; BMI 36.2
== END 2023-03-10 13:31 | disposition home or self-care (01) ==
PROVIDERS: PCP Internal Medicine; Visit Provider Physician Assistant Surgical
DX: E66.9 Obesity, unspecified (principal)
CPT/HCPCS: 99214

== ENCOUNTER → 2023-03-10 13:03 | Outpatient (BNVA) | payer MEDICAID, SELFPAY | PROVIDERS: PCP Internal Medicine; Visit Provider Physician Assistant Surgical | DX: E66.9 Obesity, unspecified (principal); Z68.36 Body mass index [BMI] 36.0-36.9, adult | CPT/HCPCS: 99212 ==

== ENCOUNTER → 2023-04-04 15:39 | Outpatient (BNVA) | payer MEDICAID, SELFPAY | PROVIDERS: PCP Internal Medicine; Visit Provider Dietitian, Registered | DX: E66.9 Obesity, unspecified (principal) | CPT/HCPCS: 97803 ==

== ENCOUNTER 2023-05-27 19:42 | Emergency (ER) | payer MEDICAID, SELFPAY ==
[2023-05-27 20:16] VITALS: BP 108/69; PULSE 95; RESP 18; TEMP 36.9; O2SAT 97; BMI 36.3
--- NOTE | 2023-05-27 20:18 | ED.GENADULT ---
HPI - General Adult General Chief complaint: Skin/Abscess/Foreign Body Stated complaint: Sore/rt hip Related Data Previous Rx's ?Medication ?Instructions ?Recorded diphenhydramine HCl 25 mg capsule 50 mg (2 x 25 mg) PO TID PRN 09/05/22 (Benadryl) allergic reaction #30 caps cholecalciferol (vitamin D3) 125 125 mcg PO DAILY 90 days #90 caps 11/14/22 mcg (5,000 unit) capsule cyanocobalamin (vitamin B-12) 500 500 mcg PO DAILY #90 tabs 02/11/23 mcg tablet Allergies Allergy/AdvReac Type Severity Reaction Status Date / Time No Known Allergies Allergy Verified 03/10/23 13:07 [No Known Allergies*] [facility] Past Medical History Surgical History No history of previous surgery Family History Family History Mother No problems noted. Father No problems noted. Maternal Grandmother Diabetes Social History Social History Alcohol intake: current Alcohol intake frequency: holidays/special occasions only Patient Tobacco Use Status: Never used Tobacco Physical Exam ED Vital Signs: BMI result Body Mass Index 36.3 Course Course Course Narrative: ELYSE Patton else presents for she pain to the hip. She has a red, swollen area, her doctor sent here for incision and drainage Discharge Plan Discharge Clinical Impression: Acute pain of right hip Patient Disposition: Left W/O Completing Treatment Prescriptions: No Action cholecalciferol (vitamin D3) 125 mcg (5,000 unit) capsule 125 mcg PO DAILY 90 Days Qty: 90 1RF cyanocobalamin (vitamin B-12) 500 mcg tablet 500 mcg PO DAILY Qty: 90 0RF diphenhydramine HCl [Benadryl] 25 mg capsule 50 mg PO TID PRN (Reason: allergic reaction) Qty: 30 0RF Discharge Date/Time: 05/27/23 23:39
== END 2023-05-27 23:39 | disposition left against medical advice (07) ==
LOC: HO.ED 23:13
PROVIDERS: Emergency Provider Emergency Medicine; PCP Internal Medicine
DX: M25.551 Pain in right hip (principal)
CPT/HCPCS: 99281

== ENCOUNTER 2023-05-28 19:37 | Outpatient (REF) | payer MEDICAID, SELFPAY | END 2023-05-28 19:38 | disposition home or self-care (01) | LOC: HO.HHCLNP 19:37 | PROVIDERS: Visit Provider Internal Medicine | DX: L02.31 Cutaneous abscess of buttock (principal) | CPT/HCPCS: 87070; 87077; 87186; 87205 ==

== ENCOUNTER 2023-07-16 10:04 | Outpatient (REF) | payer MEDICAID, SELFPAY | END 2023-07-16 10:05 | disposition home or self-care (01) | LOC: HO.HOSX 10:04 | PROVIDERS: Visit Provider Physician Assistant | DX: Z13.89 Encounter for screening for other disorder (principal) ==

== ENCOUNTER 2023-08-08 12:56 | Outpatient (REF) | payer MEDICAID, SELFPAY ==
--- NOTE | ~2023-08-08 | XR_ITS ---
EXAMINATION: XR CERVICAL SPINE CLINICAL INFORMATION: Order states pain right knee and neck pain. Patient states neck pain is mostly on right side, denies injury for 6 months. COMPARISON: None available. TECHNIQUE: 4 views of the cervical spine. FINDINGS: Straightening of the normal cervical lordosis. Visualization of C7 is limited due to overlying soft tissues. Mild multilevel cervical spondylosis. Cervical disc space heights are preserved. XR/XR cervical spine 3V IMPRESSION: 1. Straightening of the normal cervical lordosis. Mild multilevel cervical spondylosis. Visualization of C7 is limited due to overlying soft tissues. 2. Cervical disc space heights are preserved.
--- NOTE | ~2023-08-08 | XR_ITS ---
EXAMINATION: XR KNEE, RIGHT CLINICAL INFORMATION: Order states pain of right knee and neck pain. Knee pain is 4 months old, unable to recall exactly she did to her knee. COMPARISON: 10/21/2022. TECHNIQUE: Three views of the right knee. FINDINGS: Mild medial joint space narrowing with medial marginal hypertrophic change. Small joint effusion. XR/XR knee RT 3V IMPRESSION: Mild degenerative changes.
[2023-08-08 16:04] LABS: MANUAL DIFF FLAG NO
[2023-08-08 16:34] LABS: Basophils Percent Auto 0.6 % (0-2); Eosinophils Absolute Auto 0.1 X10*3/uL (0.0-0.4); Eosinophils Percent Auto 1.9 % (0-4); Hematocrit 38.5 % (37.0-47.0); Hemoglobin 12.6 g/dl (12.0-16.0); Imm Gran Abs Auto 0.01 X10*3/uL (0.00-0.03); Imm Gran Pct Auto 0.2 % (0.0-0.4); Lymphocytes Absolute Auto 2.3 X10*3/uL (1.2-4.9); Lymphocytes Percent Auto 35.7 % (20-40); Mean Corpuscular HGB Conc 32.7 g/dl (31.0-35.0); Mean Corpuscular Hemoglobin 28.2 pg (27.0-33.0); Mean Corpuscular Volume 86.1 fL (80.0-98.0); Mean Platelet Volume 10.5 fL (9.4-12.3); Monocytes Absolute Auto 0.4 X10*3/uL (0.1-1.2); Monocytes Percent Auto 6.4 % (2-11); Neutrophils Absolute Auto 3.5 x10*3/uL (2.0-8.3); Neutrophils Percent Auto 55.2 % (45-73); Platelet Count 290 X10*3/uL (160-400); Red Blood Count 4.47 X10*6/uL (4.20-5.50); Red Cell Distribution Width 13.3 % (11.0-16.0); White Blood Count 6.4 X10*3/uL (4.8-10.8)
[2023-08-08 16:49] LABS: Alanine Aminotransferase 14 U/L (0-31); Albumin Level 4.2 g/dL (3.5-5.0); Alkaline Phosphatase 76 U/L (39-117); Anion Gap 15 (12-20); Aspartate Amino Transferase 16 U/L (5-31); Bilirubin Direct 0.2 mg/dL (0.0-0.5); Bilirubin Total 0.3 mg/dL (0.0-1.0); Blood Urea Nitrogen 13 mg/dL (9-16); Calcium 10.8 mg/dL (8.4-10.2); Carbon Dioxide 25 mmol/L (22-29); Chloride 110 mmol/L (96-108); Estimated Glomerular Filt Rate > 60; Glucose Random 108 mg/dL (60-115); Potassium 4.5 mmol/L (3.3-5.1); Sodium 145 mmol/L (135-145); Total Protein 7.8 g/dL (6.5-8.0)
[2023-08-08 17:07] LABS: TSH reflex Free T4 2.77 uIU/mL (0.32-4.0)
[2023-08-09 04:03] LABS: HIV AB/AG Nonreactive (Nonreactive); HIV Num 1 0.05 S/CO (0.00-0.99); ~HepC Num1 0.11 S/CO (0.00-0.79); ~Hepatitis C Antibody Nonreactive (Nonreactive)
[2023-08-11 23:28] LABS: Lyme Abs Screen <0.90 index
[2023-08-12 08:04] LABS: RPR Rapid Plasma Reagin NON-REACTIVE (NON-REACTIVE)
== END 2023-08-08 12:57 | disposition home or self-care (01) ==
LOC: HO.HHCL 12:56
PROVIDERS: Visit Provider Internal Medicine
DX: L02.31 Cutaneous abscess of buttock (principal); R51.9 Headache, unspecified; M25.561 Pain in right knee; G89.29 Other chronic pain; M54.2 Cervicalgia
CPT/HCPCS: 36415; 72040; 73562; 80048; 80076; 84443; 85025; 86592; 86617; 86618; 86803; 87389

== ENCOUNTER → 2023-09-24 14:22 | Outpatient (BNVA) | payer MEDICAID, SELFPAY | PROVIDERS: PCP Internal Medicine; Visit Provider Surgery ==

== ENCOUNTER → 2023-11-21 08:18 | Outpatient (BNVA) | payer MEDICAID, SELFPAY | PROVIDERS: PCP Internal Medicine; Visit Provider Surgery ==

== ENCOUNTER 2024-04-10 14:16 | Emergency (ER) | payer MEDICAID, SELFPAY ==
[2024-04-10 14:22] VITALS: BP 119/72; PULSE 80; RESP 16; TEMP 36.4; O2SAT 99; BMI 38.5
[2024-04-10] MEDS: Tetracaine HCl/PF 0.5% Oph Sol 4 ML DROPS 1 DROP EYE-RIGHT (15:06)
[2024-04-10] MEDS: Fluorescein Sodium STRIP 1 STRIP EYE-RIGHT (15:06)
--- NOTE | 2024-04-10 15:08 | ED_ITS ---
HPI - Eye Problem General Chief complaint: Eye Problems Stated complaint: eye law, blurry vision Time Seen by Provider: 04/10/24 14:36 Source: patient Mode of arrival: ambulatory Limitations: no limitations History of Present Illness HPI Narrative: Patient is a 34-year-old female who presents emergency department for evaluation. She reports that she woke this morning with mild itching and burning sensation to the bilateral eyes but her right eye was much worse than the left. She reports blurry vision bilaterally, though she does report at baseline she is supposed to wear glasses but has not worn them for many years. Currently reporting that her right eye is extremely itchy has a burning pain particularly to the lateral aspect and is quite red. She denies associated fevers or chills. No precipitating injury. Reports the eyelids were not crusted shut this morning. No recent URI symptoms. No known allergens. Related Data Previous Rx's ?Medication ?Instructions ?Recorded diphenhydramine HCl 25 mg capsule 50 mg (2 x 25 mg) PO TID PRN 09/05/22 (Benadryl) allergic reaction #30 caps cholecalciferol (vitamin D3) 125 125 mcg PO DAILY 90 days #90 caps 11/14/22 mcg (5,000 unit) capsule cyanocobalamin (vitamin B-12) 500 500 mcg PO DAILY #90 tabs 02/11/23 mcg tablet ofloxacin 0.3 % eye drops 2 drp ophthalmic (eye) QID 5 days 04/10/24 #5 mL Allergies Allergy/AdvReac Type Severity Reaction Status Date / Time No Known Allergies Allergy Verified 04/10/24 14:24 [No Known Allergies*] Review of Systems Review of Systems: Yes all other systems are reviewed and are negative [facility] Past Medical History Attestation statement: The following information was validated with the patient. Source: old records reviewed Surgical History No history of previous surgery Family History Family History Mother No problems noted. Father No problems noted. Maternal Grandmother Diabetes Social History Social History Alcohol intake: current Alcohol intake frequency: holidays/special occasions only Patient Tobacco Use Status: Never used Tobacco Physical Exam Vital Signs: Vital Signs: Last Vital Signs Temp 97.6 F 04/10/24 14:22 Pulse 80 04/10/24 14:22 Resp 16 04/10/24 14:22 BP 119/72 04/10/24 14:22 Pulse Ox 99 04/10/24 14:22 O2 Del Method Room Air 04/10/24 14:22 BMI result Body Mass Index 38.5 Appearance: Alert.?Oriented to person, place and time. No acute distress.?Normal affect. Eyes: Pupils equal, round and reactive to light.? EOMI. No nystagmus. Conjunctival erythema and injection bilaterally Sclera injected on the right. Visual acuity: Left - 20/70, Right - 20/100. Fluorescein staining with uptake on the right lateral sclera. Positive right lateral chemosis. No hyphema. Negative Chantal sign. ENT: Pharynx normal.?? Neck: Normal inspection.? Neck supple.?? CVS: Heart sounds normal. Normal heart rate and rhythm.? Pulses normal.?? Respiratory: No respiratory distress.? Lung sounds clear to auscultation bilaterally?? Skin: Skin warm and dry.? Normal skin color.? Extremities: No lower extremity edema.? Neuro: Moves all extremities spontaneously. Sensation intact bilaterally. CN II- XII intact. No focal neuro deficits. Ambulates with normal steady gait. Medications Administered Discontinued Medications Generic Name Dose Route Start Last Admin Trade Name Freq PRN Reason Stop Dose Admin Fluorescein Sodium 1 strip 04/10/24 15:01 04/10/24 15:06 Fluorescein Sodium Strip EYE-RIGHT 04/10/24 15:02 1 strip ONCE ONE Administration Tetracaine HCl 1 drop 04/10/24 15:01 04/10/24 15:06 Tetracaine Hcl/Pf 0.5% Oph Shama 4 Ml Drops EYE-RIGHT 04/10/24 15:02 1 drop ONCE ONE Administration Medical Decision Making Medical Decision Making MDM Narrative: Patient is a 34-year-old female with uncertain baseline acuity, not wearing corrective lenses or contact lenses as she should be, Presenting to emergency department for evaluation of bilateral red itching eyes but right significantly worse than left onset this morning. Examination concerning for a conjunctivitis, given the abrupt onset and bilateral suspect this is likely viral or allergic for which we reviewed conservative treatment. On the right however she does have an area of ecchymosis and fluorescein uptake concerning for corneal abrasion for which she will be prescribed antibiotic drops. No painful hordeolum or painless chalazion on examination. Fluorescein staining without evidence of hepatic dendrite. No evidence of foreign body on examination, lid eversion is negative. No subconjunctival hemorrhage. No associated unilateral headache, fixed pupil, associated vomiting, or increased intra-ocular pressure to suggest acute angle glaucoma. No periorbital edema erythema or warmth to suggest periorbital cellulitis, no painful EOMI to suggest orbital cellulitis. Not described as a severe constant boring pain worse at night in the morning, nonradiating, to suggest scleritis. No ciliary flushing or consensual photophobia to suggest uveitis/iritis. On examination does not have corneal opacity or infiltrate with foreign body sensation, mucopurulent discharge or hypopyon in the setting of a presumed recent conjunctivitis to suggest keratitis. Atraumatic in nature, not consistent with penetrating injury or globe rupture additionally no hyphema or Chantal sign. No painless acute loss of vision to suggest retinal detachment, vitreous detachment for hemorrhage. Differential Diagnosis Differential Diagnoses: The differential diagnosis associated with the presentation includes (See narrative above) External Record Review External record reviewed: Outpatient record Tests considered The following testing was considered but not selected: See narrative above Prescription Management I considered prescription management with: Antibiotic Discharge Plan Discharge Clinical Impression: Corneal abrasion, Acute conjunctivitis, bilateral Patient Disposition: Home, Self-Care Instructions: Conjunctivitis (ED), Corneal Abrasion (ED) Additional Instructions: As discussed please be certain that you contact the cadd technician office Friday to arrange for a follow-up visit. Return to emergency department any new or worsening symptoms or concerns. Do not stop taking the antibiotics earlier skipped any doses if you begin to notice improvement in symptoms. Try to refrain from rubbing at the eyes as this may worsen the symptoms. Apply warm moist compresses to the bilateral eyes 3-4 times daily. Prescriptions: New ofloxacin 0.3 % drops 2 drp ophthalmic (eye) QID 5 Days Qty: 5 0RF No Action cholecalciferol (vitamin D3) 125 mcg (5,000 unit) capsule 125 mcg PO DAILY 90 Days Qty: 90 1RF cyanocobalamin (vitamin B-12) 500 mcg tablet 500 mcg PO DAILY Qty: 90 0RF diphenhydramine HCl [Benadryl] 25 mg capsule 50 mg PO TID PRN (Reason: allergic reaction) Qty: 30 0RF Referrals: Ari Hernandez MD [Primary Care Provider] - Adarsh Rogers [Physician] - Print Language: Greenlandic
[2024-04-10 15:46] VITALS: BP 145/83; PULSE 70; RESP 16; TEMP 37.1; O2SAT 98
== END 2024-04-10 15:47 | disposition home or self-care (01) ==
PROVIDERS: Emergency Provider Emergency Medicine Emergency Medical Services; PCP Internal Medicine
DX: S05.01XA Injury of conjunctiva and corneal abrasion without foreign body, right eye, initial encounter (principal); X58.XXXA Exposure to other specified factors, initial encounter; H10.9 Unspecified conjunctivitis; H57.13 Ocular pain, bilateral; Y93.9 Activity, unspecified; Y92.9 Unspecified place or not applicable; Y99.9 Unspecified external cause status
CPT/HCPCS: 99283; 99284